=== PATIENT | female | born 1965 | race Caucasian/White ===

== ENCOUNTER 2022-01-25 11:32 | Inpatient (IN) | payer OTHER ==
[2022-01-25 12:19] VITALS: BMI 17.6
[2022-01-25] MEDS ORDERED: BISMUTH SUBSALICYLATE 524 MG/30 ML PO PRN (13:20)
[2022-01-25] MEDS ORDERED: NICOTINE 10 MG CARTRIDGE (INHALER) IH PRN (13:20)
[2022-01-25] MEDS ORDERED: LORazepam 1 MG TABLET PO PRN (13:20)
[2022-01-25] MEDS ORDERED: MAGNESIUM HYDROX 2400MG/30ML ORAL SUSPENSION 30 ML CUP PO PRN (13:20)
[2022-01-25] MEDS ORDERED: LOPERAMIDE HCL 2 MG CAPSULE PO PRN (13:20)
[2022-01-25] MEDS ORDERED: ACETAMINOPHEN 325 MG TABLET (FP) PO PRN ×2 (13:20)
[2022-01-25] MEDS ORDERED: METHOCARBAMOL 500 MG TABLET PO PRN (13:20)
[2022-01-25] MEDS ORDERED: IBUPROFEN 600 MG TABLET (FP) PO PRN (13:20)
[2022-01-25] MEDS ORDERED: MAG HYDROX/AL HYDROX/SIMETH 30 ML UNIT-DOSE CUP PO PRN (13:20)
[2022-01-25] MEDS ORDERED: MAGNESIUM CITRATE 300 ML BOTTLE PO PRN (13:20)
[2022-01-25] MEDS ORDERED: BENZOCAINE/MENTHOL (CHLORASEPTIC ) LOZENGE MM PRN (13:20)
[2022-01-25] MEDS ORDERED: hydrOXYzine PAMOATE 25 MG CAPSULE (FP) PO PRN (13:20)
[2022-01-25] MEDS ORDERED: DICYCLOMINE HCL 10 MG CAPSULE PO PRN (13:20)
[2022-01-25] MEDS ORDERED: NALOXONE HCL (KLOXXADO) 8 MG SPRAY NS PRN (13:20)
[2022-01-25] MEDS ORDERED: ONDANSETRON *ODT* 4 MG TABLET SL PRN (13:20)
[2022-01-25 15:26] LABS: HEMATOCRIT 37.4 % (32.4-45.2); HEMOGLOBIN 12.8 GM/dL (10.7-15.3); MCH 35.3 pg (25.7-33.7); MCHC 34.2 g/dl (32.0-36.0); MEAN CELL VOLUME 103.3 fl (80-96); MEAN PLT VOLUME 7.5 fl (7.5-11.1); PLATELET COUNT 178 10^3/uL (134-434); RBC 3.62 M/mm3 (3.60-5.2); RDW 12.8 % (11.6-15.6); WHITE BLOOD COUNT 4.7 K/mm3 (4.0-10.0)
[2022-01-25 15:45] LABS: BLOOD UREA NITROGEN 11.2 mg/dL (7-18); CALCIUM 8.7 mg/dL (8.5-10.1)
[2022-01-25] MEDS: PRENATAL VITAMINS W/ FOLIC ACID TABLET (FP) PO SCH (15:47)
[2022-01-25 15:48] LABS: CREATININE 0.6 mg/dL (0.55-1.3)
[2022-01-25 15:49] LABS: BILIRUBIN,TOTAL 0.6 mg/dL (0.2-1)
[2022-01-25 15:50] LABS: TOT PROT 6.8 g/dl (6.4-8.2)
[2022-01-25] MEDS: methaDONE HCL 40 MG DISPERSABLE TABLET PO SCH (16:00)
[2022-01-25] MEDS: LORazepam 2 MG TABLET PO SCH ×2 (17:42→23:22)
[2022-01-25] MEDS: MELATONIN 5 MG TABLETS PO SCH (23:22)
[2022-01-25] MEDS: THIAMINE HCL 100 MG TABLET (FP) PO SCH (23:22)
[2022-01-26] MEDS: LORazepam 2 MG TABLET PO SCH ×4 (05:39→22:09)
[2022-01-26] MEDS: methaDONE HCL 40 MG DISPERSABLE TABLET PO SCH (05:39)
[2022-01-26] MEDS: PRENATAL VITAMINS W/ FOLIC ACID TABLET (FP) PO SCH (10:32)
[2022-01-26] MEDS: NICOTINE 14 MG/24 HOURS TOPICAL PATCH TD SCH (10:33)
[2022-01-26] MEDS: traZODone HCL 50 MG TABLET (FP) PO SCH (22:09)
[2022-01-26] MEDS: LACTULOSE 20 GM/30 ML UDC (FOR ORAL USE ONLY) PO SCH (22:09)
[2022-01-26] MEDS: THIAMINE HCL 100 MG TABLET (FP) PO SCH (22:09)
[2022-01-26] MEDS: MELATONIN 5 MG TABLETS PO SCH (22:09)
[2022-01-27] MEDS: methaDONE HCL 40 MG DISPERSABLE TABLET PO SCH (05:58)
[2022-01-27] MEDS: LORazepam 1 MG TABLET PO SCH ×4 (05:58→22:27)
[2022-01-27] MEDS: LACTULOSE 20 GM/30 ML UDC (FOR ORAL USE ONLY) PO SCH ×2 (11:05→22:27)
[2022-01-27] MEDS: PRENATAL VITAMINS W/ FOLIC ACID TABLET (FP) PO SCH (11:06)
[2022-01-27] MEDS: NICOTINE 14 MG/24 HOURS TOPICAL PATCH TD SCH (11:09)
[2022-01-27] MEDS: IBUPROFEN 400 MG TABLET (FP) PO PRN (18:01)
[2022-01-27] MEDS: MELATONIN 5 MG TABLETS PO SCH (22:27)
[2022-01-27] MEDS: THIAMINE HCL 100 MG TABLET (FP) PO SCH (22:27)
[2022-01-27] MEDS: traZODone HCL 50 MG TABLET (FP) PO SCH (22:27)
[2022-01-28] MEDS ORDERED: LORazepam 0.5 MG TABLET PO PRN
[2022-01-28] MEDS: methaDONE HCL 40 MG DISPERSABLE TABLET PO SCH (05:56)
[2022-01-28] MEDS: LORazepam 0.5 MG TABLET PO SCH ×4 (05:57→22:15)
[2022-01-28] MEDS: PRENATAL VITAMINS W/ FOLIC ACID TABLET (FP) PO SCH (11:19)
[2022-01-28] MEDS: LACTULOSE 20 GM/30 ML UDC (FOR ORAL USE ONLY) PO SCH ×2 (11:19→22:15)
[2022-01-28] MEDS: NICOTINE 14 MG/24 HOURS TOPICAL PATCH TD SCH (11:19)
[2022-01-28] MEDS: THIAMINE HCL 100 MG TABLET (FP) PO SCH (22:15)
[2022-01-28] MEDS: traZODone HCL 50 MG TABLET (FP) PO SCH (22:15)
[2022-01-28] MEDS: MELATONIN 5 MG TABLETS PO SCH (22:15)
[2022-01-28] MEDS: IBUPROFEN 400 MG TABLET (FP) PO PRN (22:17)
[2022-01-29] MEDS ORDERED: LORazepam 0.5 MG TABLET PO ONE (05:00)
[2022-01-29] MEDS: methaDONE HCL 40 MG DISPERSABLE TABLET PO SCH (05:21)
[2022-01-29 09:16] VITALS: BP 100/63; PULSE 64; RESP 16; TEMP 98.1
[2022-01-29] MEDS: LACTULOSE 20 GM/30 ML UDC (FOR ORAL USE ONLY) PO SCH (10:36)
[2022-01-29] MEDS: NICOTINE 14 MG/24 HOURS TOPICAL PATCH TD SCH (10:36)
[2022-01-29] MEDS: PRENATAL VITAMINS W/ FOLIC ACID TABLET (FP) PO SCH (10:36)
== END 2022-01-29 11:04 | disposition home or self-care (01) | DRG 773 ==
LOC: YASAS 11:32 → Y3N 13:54
PROVIDERS: ADMIT Allergy & Immunology; ATTEND Surgery
PROC: HZ2ZZZZ Detoxification Services for Substance Abuse Treatment (ICD-10-PCS; principal; 2022-01-25)
DX: F10.230 Alcohol dependence with withdrawal, uncomplicated (principal); F11.20 Opioid dependence, uncomplicated; F14.20 Cocaine dependence, uncomplicated; F12.20 Cannabis dependence, uncomplicated; F17.210 Nicotine dependence, cigarettes, uncomplicated; E72.20 Disorder of urea cycle metabolism, unspecified; F19.24 Other psychoactive substance dependence with psychoactive substance-induced mood disorder; G40.909 Epilepsy, unspecified, not intractable, without status epilepticus; J45.909 Unspecified asthma, uncomplicated; M17.11 Unilateral primary osteoarthritis, right knee
CPT/HCPCS: 36415; 80053; 82140; 85027; 86780; 93005; 93010; C9803-CS; U0003; U0005